=== PATIENT | female | born 1995 | race Caucasian/White ===

== ENCOUNTER 2017-03-17 12:37 | Emergency (ER) | payer OTHER ==
[~2017-03-17] VITALS: Ht 147.3 cm; Wt 49.2 kg
[2017-03-17 13:03] VITALS: TEMP 36.7; Ht 147.3 cm; Wt 49.2 kg
--- NOTE | 2017-03-17 13:39 | EMERGENCY ROOM VISIT NOTE ---
History First contact with patient: 13:21 Chief Complaint: ABDOMINAL PAIN Stated Complaint: DIARRHEA, SEVERE ABD PAIN, NAUSEA, FEELING FAINT Nursing Triage Summary: 0500 bilateral lower abdominal pain sharp and constant. Nausea and diarrhea since this am also. Also noticed sharp pain in right leg. History of Present Illness The patient is a 21 year old female who presents to the Emergency Room with complaints of lower abdominal pain that started this morning. The patient reports that the pain started with intercourse. She describes as sharp, stabbing sensation. It has been constant since. She also had 2 episodes of diarrhea. She also reports some nausea. She denies any fever or chills. She denies any vaginal discharge. The patient is sexually active with one partner. She uses control pills for contraception. Review of Systems 10 system review performed and negative unless noted in HPI or below Past Medical/Surgical History Otherwise healthy Social History Smoking Status: Never Smoker Occupation Status: [employer] student Current/Historical Medications Scheduled Control Pills ( Control Pills), 1 TAB PO DAILY Physical Exam Vital Signs Date Time Temp Pulse Resp B/P (MAP) Pulse Ox O2 Delivery O2 Flow Rate FiO2 03/17/17 16:13 80 16 108/63 99 Room Air 03/17/17 14:35 65 16 105/73 98 Room Air 03/17/17 13:03 36.7 78 18 113/74 97 Room Air Physical Exam VITALS: Vitals are noted on the nurse's note and reviewed by myself. Vital signs stable. GENERAL: 21-year-old female, in no acute distress, nondiaphoretic, well- developed well-nourished. SKIN: The skin was without rashes, erythema, edema, or bruising. HEAD: Normocephalic atraumatic. MOUTH: Mucous membranes moist. NECK: Supple without nuchal rigidity. No JVD. HEART: Regular rate and rhythm without murmurs gallops or rubs. LUNGS: Clear to auscultation bilaterally without wheezes, rales or rhonchi. No accessory muscle use. ABDOMEN: Positive bowel sounds x 4.Soft, mild tenderness to palpation in the left lower quadrant, without organomegaly. No guarding or rebound tenderness. : Bartholin's cyst present at the left side of the vaginal introitus. It is not inflamed. No tenderness to palpation. MUSCULOSKELETAL: No muscle atrophy, erythema, or edema noted.. Strength 5/5 throughout. NEURO: Patient was alert and oriented to person place and time. Normal sensation to touch. No focal neurological deficits. Medical Decision & Procedures ER Provider Diagnostic Interpretation: Pelvic ultrasound IMPRESSION: Several very small bilateral follicular cysts. Otherwise negative pelvic ultrasound. The above report was generated using voice recognition software. It may contain grammatical, syntax or spelling errors. Electronically signed by: Jony Ramsey M.D. 03/17/2017 3:10 PM Dictated Date/Time: 03/17/2017 3:09 PM The status of this report is Signed. Draft = Not yet reviewed or approved by Radiologist. Signed = Reviewed and approved by Radiologist. <AttendingPhy></AttendingPhy> <FamilyPhy>No Doctor, Assigned</FamilyPhy> < PrimaryPhy>No Doctor, Assigned</PrimaryPhy> <UnitNumber>[id number]</UnitNumber> <VisitNumber>[id number]</VisitNumber> <PatientName>JULIANN SKY</ PatientName> <DateOfBirth>1995</DateOfBirth> <Location>[facility]</Location> < ServiceDate>03/17/17</ServiceDate> <MNE>ESINDI</MNE> <OrderingPhy>Chiara Brannon PA-C</OrderingPhy> <OrderingPhyMNE>f rep ord dr leos</OrderingPhyMNE> < DictatingPhyMNE>f rep dict dr leos</DictatingPhyMNE> <CCListMNE>f rep ct mne</ CCListMNE> <AdmittingPhyMNE>f pt admit dr leos</AdmittingPhyMNE> <Attendi Laboratory Results 03/17/17 13:30 Red Blood Count 4.58, Mean Corpuscular Volume 93.7, Mean Corpuscular Hemoglobin 32.5, Mean Corpuscular Hemoglobin Concent 34.7, Mean Platelet Volume 10.9, Neutrophils (%) (Auto) 50.8, Lymphocytes (%) (Auto) 40.0, Monocytes (%) (Auto) 8.1, Eosinophils (%) (Auto) 0.6, Basophils (%) (Auto) 0.4, Neutrophils # (Auto) 3.47, Lymphocytes # (Auto) 2.73, Monocytes # (Auto) 0.55, Eosinophils # (Auto) 0.04, Basophils # (Auto) 0.03 03/17/17 13:30 Test 03/17/17 13:30 White Blood Count 6.83 K/uL (4.8-10.8) Red Blood Count 4.58 M/uL (4.2-5.4) Hemoglobin 14.9 g/dL (12.0-16.0) Hematocrit 42.9 % (37-47) Mean Corpuscular Volume 93.7 fL (80-100) Mean Corpuscular Hemoglobin 32.5 pg (25-34) Mean Corpuscular Hemoglobin Concent 34.7 g/dl (32-36) Platelet Count 252 K/uL (130-400) Mean Platelet Volume 10.9 fL (7.4-10.4) Neutrophils (%) (Auto) 50.8 % Lymphocytes (%) (Auto) 40.0 % Monocytes (%) (Auto) 8.1 % Eosinophils (%) (Auto) 0.6 % Basophils (%) (Auto) 0.4 % Neutrophils # (Auto) 3.47 K/uL (1.4-6.5) Lymphocytes # (Auto) 2.73 K/uL (1.2-3.4) Monocytes # (Auto) 0.55 K/uL (0.11-0.59) Eosinophils # (Auto) 0.04 K/uL (0-0.5) Basophils # (Auto) 0.03 K/uL (0-0.2) RDW Standard Deviation 41.5 fL (36.4-46.3) RDW Coefficient of Variation 12.2 % (11.5-14.5) Immature Granulocyte % (Auto) 0.1 % Immature Granulocyte # (Auto) 0.01 K/uL (0.00-0.02) Urine Color YELLOW Urine Appearance CLEAR (CLEAR) Urine pH 5.5 (4.5-7.5) Urine Specific [place] 1.032 (1.000-1.030) Urine Protein NEG (NEG) Urine Glucose (UA) NEG (NEG) Urine Ketones TRACE (NEG) Urine Occult Blood NEG (NEG) Urine Nitrite NEG (NEG) Urine Bilirubin NEG (NEG) Urine Urobilinogen NEG (NEG) Urine Leukocyte Esterase SMALL (NEG) Urine WBC (Auto) 5-10 /hpf (0-5) Urine RBC (Auto) 0-4 /hpf (0-4) Urine Hyaline Casts (Auto) 1-5 /lpf (0-5) Urine Epithelial Cells (Auto) 20-30 /lpf (0-5) Urine Bacteria (Auto) NEG (NEG) Urine Test NEG (NEG) Anion Gap 6.0 mmol/L (3-11) Est Creatinine Clear Calc Drug Dose 59.2 ml/min Estimated GFR () 88.3 Estimated GFR (Non- 76.2 BUN/Creatinine Ratio 17.2 (10-20) Calcium Level 9.3 mg/dl (8.5-10.1) Total Bilirubin 0.6 mg/dl (0.2-1) Aspartate Amino Transf (AST/SGOT) 15 U/L (15-37) Alanine Aminotransferase (ALT/SGPT) 21 U/L (12-78) Alkaline Phosphatase 62 U/L (45-117) Total Protein 8.4 gm/dl (6.4-8.2) Albumin 4.3 gm/dl (3.4-5.0) Globulin 4.1 gm/dl (2.5-4.0) Albumin/Globulin Ratio 1.1 (0.9-2) Medications Administered Medications (Trade) Dose Ordered Sig/Kerrie Route Start Time Stop Time Status Last Admin Dose Admin Ketorolac Tromethamine (Toradol Inj) 30 mg NOW STAT IV 03/17/17 15:51 03/17/17 15:52 DC 03/17/17 15:58 30 MG ED Course Patient was seen and examined Vital signs including blood pressure were reviewed medications list was verified with patient Labs were obtained, and a saline lock was established Imaging was performed The patient was reevaluated. We discussed her imaging. She voiced understanding. She was given 1 dose of Toradol 30 mg IV. Upon reevaluation, the patient was more comfortable. She is currently being discharged home. I reviewed discharge instructions the patient. They voiced understanding and had no further questions. Medical Decision Differential diagnosis: Ovarian cyst, ovarian torsion, ectopic , PID, viral GI illness, appendicitis, UTI This patient is a 21-year-old female presents emergency department complaining of lower abdominal pain that started with vaginal intercourse on exam, she had mild tenderness in the left lower quadrant. No signs of rebound or guarding. She was nontoxic in appearance. She is afebrile. Labs reveal no leukocytosis. H&H is stable. Ultrasound was performed. No significant ovarian cysts or abnormalities were noted. The etiology of her pain is unclear. I do not suspect PID/infection as she did not have any vaginal discharge, fever or leukocytosis. It is possible that she is having uterine cramping secondary to intercourse. I believe she is stable to be discharged home. She was instructed to take ibuprofen for the next 48 hours. She was also instructed to follow-up with her [employer] if the pain persists. She was comfortable with this plan. She agrees to return to the emergency department with any new or worsening symptoms. This chart was completed in part utilizing [employer] Speech Voice Recognition software. Attempts were made to minimize the grammatical errors, random word insertions, pronoun errors and incomplete sentences. Any formal questions or concerns about the content, text or information contained within the body of this dictation should be directly addressed to the provider for clarification. Medication Reconcilliation Current Medication List: was personally reviewed by me Blood Pressure Screening Patient's blood pressure: Normal blood pressure Impression Primary Impression: Pelvic pain Departure Information Dispostion Home / Self-Care Condition GOOD Patient Instructions My [facility] Additional Instructions You were evaluated in the emergency department today for pelvic pain. Please take ibuprofen 600 mg every 6 hours as needed for the next 48 hours. No sexual activity/nothing in the vagina for the next 3 days Please follow-up with your [employer] when you return home Please do not hesitate to return to the emergency department with any new, worsening or concerning symptoms; especially, fever, vomiting or worsening pain
[2017-03-17 13:52] LABS: BASO % 0.4 %; BASO ABS # 0.03 K/uL (0-0.2); COMPLETE YES; EOS % 0.6 %; HEMATOCRIT 42.9 % (37-47); IG% 0.1 %; LYMPH ABS # 2.73 K/uL (1.2-3.4); MEAN CELL VOLUME 93.7 fL (80-100); MEAN CORPUSCULAR HEMOGLOBIN 32.5 pg (25-34); MEAN CORPUSCULAR HGB CONC 34.7 g/dl (32-36); MEAN PLATELET VOLUME 10.9 fL (7.4-10.4); MONO % 8.1 %; NEUT % 50.8 %; PLATELET COUNT 252 K/uL (130-400); RED BLOOD COUNT 4.58 M/uL (4.2-5.4); WHITE BLOOD COUNT 6.83 K/uL (4.8-10.8)
[2017-03-17] MEDS ORDERED: BCPILLS PO (14:04)
[2017-03-17 14:08] LABS: BUN/CREATININE RATIO 17.2 (10-20); CALCIUM 9.3 mg/dl (8.5-10.1); CREATININE 1.04 mg/dl (0.60-1.20); POTASSIUM 3.8 mmol/L (3.5-5.1)
[2017-03-17 14:11] LABS: ALB/GLOB RATIO 1.1 (0.9-2)
[2017-03-17 14:15] LABS: URINE APPEARANCE CLEAR (CLEAR); URINE BILIRUBIN NEG (NEG); URINE COLOR YELLOW; URINE EPITHELIAL CELL AUTO 20-30 /lpf (0-5); URINE NITRITE NEG (NEG); URINE PH 5.5 (4.5-7.5); URINE SPECIFIC GRAVITY 1.032 (1.000-1.030); UROBILINOGEN NEG (NEG)
[2017-03-17 14:19] LABS: MANUAL MICROSCOPIC REQUIRED? NO; REVIEW REQ? NO
--- NOTE | 2017-03-17 15:11 | DIAGNOSTIC IMAGING REPORT ---
PELVIC COMPLETE NON OB CLINICAL HISTORY: lower abd pain ? cyst COMPARISON STUDY: None FINDINGS: The uterus measured 7.5 cm. The endometrial stripe measured 5 mm. The right ovary measured 3.5 cm with normal vascular flow. Several small subcentimeter follicular cysts.. The left ovary measured 3.9 cm with several small follicular cysts. Normal vascular flow. There is no ultrasonographic evidence of ovarian torsion. It should be noted that ovarian torsion can be present with normal Doppler ultrasonographic findings. There was no evidence of pathologic free pelvic fluid. IMPRESSION: Several very small bilateral follicular cysts. Otherwise negative pelvic ultrasound. The above report was generated using voice recognition software. It may contain grammatical, syntax or spelling errors. Electronically signed by: Jony Ramsey M.D. 03/17/2017 3:10 PM Dictated Date/Time: 03/17/2017 3:09 PM
[2017-03-17] MEDS ORDERED: KETOROLAC TROMETHAMINE 30 MG/ML VIAL IV STA (15:51)
[2017-03-17 16:13] VITALS: BP 108/63; PULSE 80; O2SAT 99
== END 2017-03-17 16:14 | disposition home or self-care (01) ==
LOC: C.EDB 12:39 → C.EDA 16:14
DX: R10.2 Pelvic and perineal pain (principal); R19.7 Diarrhea, unspecified